=== PATIENT | female | born 1995 | race Caucasian/White ===

== ENCOUNTER 2017-05-10 10:42 | Emergency (ER) | payer BC ==
[2017-05-10 10:47] VITALS: RESP 18; TEMP 98.2
--- NOTE | 2017-05-10 11:04 | EDPHY ---
H & P Stated Complaint: right shoulder pain srarting almost 1 week ago, getting worse Time Seen by Provider: 05/10/17 11:04 HPI/ROS: HPI: This is a 22-year-old female who presents with Chief Complaint: right shoulder pain starting almost 1 week ago, getting worse Location: Right shoulder/midback Quality: Aching pain Duration: 1 week Signs and Symptoms: No bleeding, no radiation, no numbness, no weakness, no tingling, no incontinence, no decreased range of motion, + swelling, + pain Timing: Waxes and wanes and worse with pushing or pulling motions Severity: [id number] Context: Patient is a student and reports that the chairs in her apartment are not the best for posture as well as she slumps while studying for long periods of time while extending both arms on the computer. Right-hand dominant. She woke up approximately 1 week ago with a dull aching nonradiating mild-to- moderate discomfort in her right shoulder region primary posterior shoulder. She reports that the pain worsens with pushing or pulling activities. She has tried no [id number] medications for the pain. No history of lung disease. Mother is an RN in pulmonology and requested she go to the emergency room to have a long evaluation. Denies any cough/fever/wheezing/dyspnea. Modifying Factors: None Comment: ROS: see HPI Constitutional: No fever, no chills, no weight loss Eyes: No blurred vision Respiratory: No shortness of breath, no cough Cardiovascular: No chest pain Gastrointestinal: No nausea, no vomiting no diarrhea Genitourinary: No dysuria Extremities: No myalgias Neurologic: No weakness, no numbness Skin: No rashes Hematologic: No bruising, no bleeding MEDICAL/SURGICAL/SOCIAL HISTORY: Medical history: Hypothyroidism Surgical history: Rhinoplasty Social history: See you college student CONSTITUTIONAL: awake and alert, no obvious distress HEENT: Atraumatic and normocephalic. NECK: supple, no midline tenderness, flexion 45 degrees, extension 45 degrees, right and left lateral flexion 45 degrees. No meningismus. Cardiovascular: Normal S1/S2, regular rate, regular rhythm, without murmur rub or gallop. PULMONARY/CHEST: Symmetrical and nontender. no crepitus. Clear to auscultation bilaterally. Good air movement. No accessory muscle usage. ABDOMEN: Soft, nondistended, nontender, no ecchymosis. PELVIC: no pain with rocking; bilateral hips flexion 125 degrees, extension 30 degrees, with no pain internal rotation and no pain external rotation. BACK: No midline tenderness, moderate reproducible thoracic paraspinous muscle tenderness, deep tendon reflexes 2/2, no pain with straight leg raise EXTREMITIES: 2/2 pulses, SHOULDER: Arc test abduction to 180, abduction to 45 , horizontal flexion 130, horizontal extension to 45, deltoid strength 5/5. No pain with Neer test/Ward test (impingement). No Tenderness to palpation over AC joint. no deformities, no clubbing, no cyanosis or edema. NEUROLOGICAL: no focal neuro deficits. GCS 15. Light touch sensation intact. SKIN: Warm and dry, no erythema. no rash. Good capillary refill. Source: Patient Exam Limitations: No limitations - Personal History LMP (Females 10-55): Extended Cycle BCP/Inj Current Tetanus/Diphtheria Vaccine: Unsure Current Tetanus Diphtheria and Acellular Pertussis (TDAP): Unsure - Medical/Surgical History Hx Asthma: No Hx Chronic Respiratory Disease: No Hx Diabetes: No Hx Cardiac Disease: No Hx Renal Disease: No Hx Cirrhosis: No Hx Alcoholism: No Hx HIV/AIDS: No Hx Splenectomy or Spleen Trauma: No Other PMH: hypothyroid. rhinoplasty - Social History Smoking Status: Never smoked Constitutional: Initial Vital Signs Temperature (C) 36.8 C 05/10/17 10:44 Heart Rate 98 05/10/17 10:44 Respiratory Rate 18 05/10/17 10:44 Blood Pressure 151/75 H 05/10/17 10:44 O2 Sat (%) 97 05/10/17 10:44 O2 Delivery Mode Room Air Allergies/Adverse Reactions: No Known Allergies Allergy (Unverified 05/10/17 10:44) Home Medications: Medication Instructions Recorded Cyclobenzaprine [Flexeril 10 MG 10 mg PO TID PRN #10 tab 05/10/17 (*)] Lutera-28 Tablet 05/10/17 Synthroid 05/10/17 Medical Decision Making ED Course/Re-evaluation: Right shoulder x-ray ordered and reviewed via PACs by myself and shows no acute abnormality No signs of neurovascular compromise/tenting of skin/compartment syndrome/ extremities and joints examined above and below area of concern and are neurovascularly intact. Differential Diagnosis: Right shoulder pain differential includes but is not limited to shoulder impingement syndrome, shoulder strain, shoulder bursitis, thoracic strain. Departure - Departure Disposition: Home, Routine, Self-Care Clinical Impression: Strain of muscle at thorax level Condition: Good Instructions: Thoracic Back Strain (ED), RICE Therapy (ED) Additional Instructions: Rice therapy. Would be beneficial for you to obtain a massage and perform gentle stretching exercises. Please be aware of your posture and practice good ergonomics while studying. Referrals: DELILAH ROSAS [Other] - As per Instructions Prescriptions: Cyclobenzaprine [Flexeril 10 MG (*)] 10 mg PO TID PRN #10 tab PRN Reason: Spasms
[2017-05-10 12:06] VITALS: BP 122/80; PULSE 81; O2SAT 99
== END 2017-05-10 12:06 | disposition home or self-care (01) ==
DX: S29.012A Strain of muscle and tendon of back wall of thorax, initial encounter (principal); X58.XXXA Exposure to other specified factors, initial encounter

== ENCOUNTER 2018-10-07 20:54 | Emergency (ER) | payer BC ==
[2018-10-07] MEDS ORDERED: DEXAMETHASONE 10 MG/ML VIAL IVP ONE (21:08)
[2018-10-07] MEDS ORDERED: ACETAMINOPHEN 500 MG TAB PO ONE (21:08)
[2018-10-07] MEDS ORDERED: NS 1,000 ML IV ONE ×3 (21:08→21:46)
--- NOTE | 2018-10-07 21:10 | EDPHY ---
H & P Stated Complaint: sore throat today, "was at green party last night" denies drug use Time Seen by Provider: 10/07/18 20:58 HPI/ROS: CHIEF COMPLAINT: Sore throat since this morning HISTORY OF PRESENT ILLNESS: 23-year-old female awoke with sore throat this morning. Positives tender cervical adenopathy. No trismus no drooling. No back or flank pain. No nuchal rigidity. No headache. No flu-like symptoms. No chest pain. Patient took 600 mg of ibuprofen approximately 30 min prior to my examining patient REVIEW OF SYSTEMS: 10 systems reviewed and negative with the exception of the elements mentioned in the history of present illness PAST MEDICAL & SURGICAL HISTORY: No pertinent medical or surgical history SOCIAL HISTORY:Student PHYSICAL EXAM (Prior to examination, patient consented to physical exam, hands were washed and my usual and customary physical exam procedures followed) 1) GENERAL: Well-developed, well-nourished, alert and oriented. Appears to be in no acute distress. Appears nontoxic 2) HEAD: Normocephalic, atraumatic 3) HEENT: Pupils equal, round, reactive to light bilaterally. Sclera anicteric. Nasopharynx, oropharynx, clear, no lesions. Moist Mucous membranes. Bilateral tonsils are symmetrically enlarged with white exudate. No pointing of the uvula. No hot potato voice. No trismus no drooling. Ears bilaterally with normal tympanic membranes. 4) NECK: Full range of motion, no meningeal signs. Positive tender bilateral cervical adenopathy 5) LUNGS: Clear auscultation bilaterally, no wheezes, no rhonchi, no retractions. 6) HEART: Regular rate and rhythm, no murmur, no heave, no gallop. 7) ABDOMEN: No guarding, no rebound, no focal tenderness, negative McBurney's, negative Bazan's, negative Rovsing's, negative peritoneal sign, no left upper quadrant pain no splenomegaly 8) MUSCULOSKELETAL: Moving all extremities, no focal areas of tenderness, no obvious trauma. No peripheral edema or discoloration. 9) BACK: No CVA tenderness, no midline vertebral tenderness, no fluctuance, no step-off, no obvious trauma, no visual or palpable abnormality. 10) SKIN: No rash, no petechiae. 11) Psychiatric: Patient is oriented X 3, there is no agitation. DIFFERENTIAL DIAGNOSIS: In no particular order, my differential diagnosis includes, but is not limited to, strep pharyngitis, viral pharyngitis, peritonsillar abscess, retropharyngeal abscess or plegmon, mononucleosis, meningitis, Lemierre syndrome. - Personal History LMP (Females 10-55): 22-28 Days Ago Current Tetanus/Diphtheria Vaccine: Yes Current Tetanus Diphtheria and Acellular Pertussis (TDAP): Yes - Medical/Surgical History Hx Asthma: No Hx Chronic Respiratory Disease: No Hx Diabetes: No Hx Cardiac Disease: No Hx Renal Disease: No Hx Cirrhosis: No Hx Alcoholism: No Hx HIV/AIDS: No Hx Splenectomy or Spleen Trauma: No Other PMH: hypothyroid. rhinoplasty - Social History Smoking Status: Never smoked Constitutional: Initial Vital Signs Temperature (C) 38.8 C H 10/07/18 21:00 Heart Rate 131 H 10/07/18 21:00 Respiratory Rate 20 10/07/18 21:00 Blood Pressure 142/92 H 10/07/18 21:00 O2 Sat (%) 95 10/07/18 21:00 O2 Delivery Mode Room Air Allergies/Adverse Reactions: No Known Allergies Allergy (Unverified 10/07/18 20:59) Home Medications: Medication Instructions Recorded Lutera-28 Tablet 05/10/17 Synthroid 05/10/17 Amoxicillin/Clavulanate Pot 875 mg PO BID #14 tab 10/07/18 [Augmentin 875 mg tab] Medical Decision Making ED Course/Re-evaluation: Care of patient under supervision of secondary supervising physician Dr Cesar with whom I discussed case. 10:50 p.m.: Re-evaluation, patient is smiling, states that she is feeling significantly improved. She has been given IV fluids, given IV Decadron. She appears improved. No trismus no drooling. Heart rate in the 90s. She has negative mono testing. Negative strep testing however high clinical suspicion for strep pharyngitis. Recommended initiating Augmentin, recommended following up with ENT tomorrow. - Data Points Laboratory Results: Laboratory Results 10/07/18 21:14 10/07/18 21:14 10/07/18 10/07/18 10/07/18 Unknown 21:14 21:14 WBC RBC Hgb Hct MCV MCH MCHC RDW Plt Count MPV Neut % (Auto) Lymph % (Auto) [place] % (Auto) Eos % (Auto) Baso % (Auto) Nucleat RBC Rel Count Absolute Neuts (auto) Absolute Lymphs (auto) Absolute Monos (auto) Absolute Eos (auto) Absolute Basos (auto) Absolute Nucleated RBC Immature Gran % Immature Gran # Sodium Potassium Chloride Carbon Dioxide Anion Gap BUN Creatinine Estimated GFR Glucose Calcium Beta HCG, Qual NEGATIVE Monoscreen NEGATIVE (NEGATIVE) Group A Strep Screen Group A Strep DNA Pending 10/07/18 10/07/18 10/07/18 21:14 21:14 21:00 WBC 17.38 10^3/uL H 10^3/uL (3.80-9.50) RBC 5.00 10^6/uL 10^6/uL (4.18-5.33) Hgb 14.8 g/dL g/dL (12.6-16.3) Hct 42.5 % % (38.0-47.0) MCV 85.0 fL fL (81.5-99.8) MCH 29.6 pg pg (27.9-34.1) MCHC 34.8 g/dL g/dL (32.4-36.7) RDW 12.6 % % (11.5-15.2) Plt Count 282 10^3/uL 10^3/uL (150-400) MPV 10.3 fL fL (8.7-11.7) Neut % (Auto) 89.9 % H % (39.3-74.2) Lymph % (Auto) 3.6 % L % (15.0-45.0) [place] % (Auto) 5.6 % % (4.5-13.0) Eos % (Auto) 0.1 % L % (0.6-7.6) Baso % (Auto) 0.3 % % (0.3-1.7) Nucleat RBC Rel Count 0.0 % % (0.0-0.2) Absolute Neuts (auto) 15.63 10^3/uL H 10^3/uL (1.70-6.50) Absolute Lymphs (auto) 0.63 10^3/uL L 10^3/uL (1.00-3.00) Absolute Monos (auto) 0.97 10^3/uL H 10^3/uL (0.30-0.80) Absolute Eos (auto) 0.01 10^3/uL L 10^3/uL (0.03-0.40) Absolute Basos (auto) 0.06 10^3/uL 10^3/uL (0.02-0.10) Absolute Nucleated RBC 0.00 10^3/uL 10^3/uL (0-0.01) Immature Gran % 0.5 % % (0.0-1.1) Immature Gran # 0.08 10^3/uL 10^3/uL (0.00-0.10) Sodium 137 mEq/L mEq/L (135-145) Potassium 3.9 mEq/L mEq/L (3.5-5.2) Chloride 103 mEq/L mEq/L (97-110) Carbon Dioxide 22 mEq/l mEq/l (22-31) Anion Gap 12 mEq/L mEq/L (6-14) BUN 7 mg/dL mg/dL (7-23) Creatinine 0.7 mg/dL mg/dL (0.6-1.0) Estimated GFR > 60 Glucose 111 mg/dL H mg/dL (70-100) Calcium 10.1 mg/dL mg/dL (8.5-10.4) Beta HCG, Qual Monoscreen Group A Strep Screen NEGATIVE (NEGATIVE) Group A Strep DNA Medications Given: Discontinued Medications Acetaminophen (Tylenol) 1,000 mg PO EDNOW ONE Stop: 10/07/18 21:09 Last Admin: 10/07/18 21:15 Dose: 1,000 mg Dexamethasone (Decadron Injection) 10 mg IVP EDNOW ONE Stop: 10/07/18 21:09 Last Admin: 10/07/18 21:15 Dose: 10 mg Sodium Chloride (Ns) 1,000 mls @ 0 mls/hr IV ONCE ONE PRN Reason: Wide Open Stop: 10/07/18 21:09 Last Admin: 10/07/18 21:15 Dose: 1,000 mls Sodium Chloride (Ns) 1,000 mls @ 0 mls/hr IV ONCE ONE PRN Reason: Wide Open Stop: 10/07/18 21:41 Last Admin: 10/07/18 21:40 Dose: 1,000 mls Sodium Chloride (Ns) 1,000 mls @ 0 mls/hr IV ONCE ONE PRN Reason: Wide Open Stop: 10/07/18 21:47 Last Admin: 10/07/18 21:59 Dose: Not Given Departure - Departure Disposition: Home, Routine, Self-Care Clinical Impression: Strep throat Condition: Good Instructions: Strep Throat (ED) Additional Instructions: Return to the ER immediately if you cannot swallow, have drooling, fevers, neck stiffness, cannot open your jaw, or any other symptoms that concern you. Referrals: Abhijit Hurtado MD [Medical Doctor] - 1-2 days without fail Stand Alone Forms: School Excuse Prescriptions: Amoxicillin/Clavulanate Pot [Augmentin 875 mg tab] 875 mg PO BID #14 tab
[2018-10-07 21:24] LABS: PLATELET COUNT 282 10^3/uL (150-400)
[2018-10-07] MEDS ORDERED: AMOXICILLIN/CLAVULANATE POT 875/125 MG TAB PO ONE ×2 (22:48→22:53)
[2018-10-07 23:03] VITALS: BP 132/85
== END 2018-10-07 23:09 | disposition home or self-care (01) ==
DX: J02.0 Streptococcal pharyngitis (principal)
CPT/HCPCS: 96374; J1100